=== PATIENT | male | born 1985 | race Two or more races ===

== ENCOUNTER 2019-02-13 04:57 | Emergency (ER) | payer OTHER ==
[~2019-02-13] VITALS: Ht 167.6 cm; Wt 80.7 kg
--- NOTE | 2019-02-13 05:18 | NUR ---
BLOOD DRAWN AND GIVEN TO LAB
--- NOTE | 2019-02-13 05:21 | NUR ---
TECH AT BEDSIDE FOR EKG
--- NOTE | 2019-02-13 05:21 | NUR ---
PT BIBSELF C/O "BLACK TARRY STOOL X7 DAYS, ABD PAIN TODAY. THROWING UP BLOOD" -SOB AOX4. VSS AT THIS TIME. AMBULATORY. PT APPEARS TO BE PALE SKIN. PT ON MONITOR IN BED 1. WILL CONTINUE TO MONITOR.
[2019-02-13] MEDS ORDERED: PANTOPRAZOLE 40 MG VIAL ONE (05:22)
[2019-02-13] MEDS ORDERED: ONDANSETRON HCL/PF 4 MG/2 ML VIAL ONE ×3 (05:22→08:48)
[2019-02-13 05:29] LABS: BASOPHILS % (AUTO) 0.3 % (0.0-2.0); EOSINOPHILS % (AUTO) 0.6 % (0.0-6.0); HEMATOCRIT 28 % (39-51); HEMOGLOBIN 9.2 g/dL (13.5-17.5); LYMPHOCYTES # (AUTO) 5.2 /CMM (0.8-4.8); LYMPHOCYTES % (AUTO) 35.4 % (20.0-44.0); MEAN CORPUSCULAR HGB CONC 33 g/dl (31.0-36.0); MEAN CORPUSCULAR VOLUME 86 fL (80-96); MONOCYTES % (AUTO) 6.7 % (2.0-12.0); NEUTROPHILS # (AUTO) 8.4 /CMM (1.8-8.9); PLATELET COUNT (AUTO) 223 /CMM (150-450); RED BLOOD CELL COUNT(AUTO) 3.31 MIL/uL (4.5-6.0); WHITE BLOOD COUNT (AUTO) 14.7 K/uL (4.3-11.0)
[2019-02-13] MEDS ORDERED: IV NS 0.9% 1,000 ML BAG IV ONE (05:30)
[2019-02-13] MEDS ORDERED: ONDANSETRON HCL/PF 4 MG/2 ML VIAL IV ONE ×3 (05:30→09:00)
[2019-02-13] MEDS ORDERED: PANTOPRAZOLE 40 MG VIAL IV ONE (05:30)
[2019-02-13 06:05] LABS: CALCIUM, SERUM 7.9 mg/dL (8.5-10.1); CREATININE 1.2 mg/dL (0.6-1.3); POTASSIUM 3.5 mmol/L (3.5-5.1)
[2019-02-13 06:11] LABS: ALBUMIN 3.1 g/dL (3.4-5.0); BILIRUBIN,DIRECT 0.1 mg/dL (0.0-0.2); BILIRUBIN,TOTAL 0.3 mg/dL (0.2-1.0); TOTAL PROTEIN, SERUM 6.6 g/dL (6.4-8.2)
--- NOTE | 2019-02-13 07:26 | NUR ---
ASSESSED PT ON BED, AAOX4, NOT IN RESPIRATORY DISTRESS, V/S STABLE, KEPT RESTED AND COMFORTABLE, WILL CONTINUE TO MONITOR, AWAITING INFO FOR TRANSFER TO [facility]
--- NOTE | 2019-02-13 07:51 | NUR ---
[address] NURSE EVER [phone] [facility] ETA 1HR FOR AMBULANCE GARMENT SUPERVISOR
--- NOTE | 2019-02-13 07:55 | NUR ---
REPORT GIVEN TO ALFREDO CURTIS FOR [facility] IN [facility], AWAITING AMBULANCE FOR PT TRANSFER.
--- NOTE | 2019-02-13 08:05 | NUR ---
TECH AT BEDSIDE FOR US.
--- NOTE | 2019-02-13 08:47 | NUR ---
REPORT GIVEN TO EMT FOR PT TRANSFER TO [facility]
[2019-02-13 08:57] VITALS: BP 127/77
== END 2019-02-13 08:59 | disposition short-term general hospital (02) ==
LOC: ER 05:04
DX: K92.2 Gastrointestinal hemorrhage, unspecified (principal); R42 Dizziness and giddiness
CPT/HCPCS: 36415; 71045; 76705; 80048; 80076; 83690; 85025; 85730; 86850; 87081; 93005; 96361; 96374; 96375; 96376; 99291; C9113; J2405 ×3; J7030